=== PATIENT | female | born 1995 | race Caucasian/White ===

== ENCOUNTER 2019-11-02 09:54 | Day surgery (SDC) | payer OTHER ==
[2019-10-29 13:00] VITALS: BMI 30.9
[2019-11-02] MEDS ORDERED: CeleCOXIB 100 MG CAP ONE (10:38)
[2019-11-02] MEDS ORDERED: Gabapentin 300 MG CAP ONE (10:38)
[2019-11-02] MEDS ORDERED: Midazolam HCl 2 mg/2 ml Vial ONE (10:53)
[2019-11-02] MEDS ORDERED: Fentanyl 100 MCG/2 ML VIAL ONE ×2 (10:53→13:13)
[2019-11-02 11:22] LABS: #Basophils 0.1 thou/uL (0.0-0.2); #Lymphocytes 2.1 thou/uL (1.20-3.40); #Monocytes 0.5 thou/uL (0.11-0.59); #Neutrophils 2.6 thou/uL (1.40-6.50); %Basophils 2.2 % (0.0-1.0); %Eosinophils 0.4 % (0.0-10.0); %Lymphocytes 39.4 % (21.0-51.0); %Monocytes 8.7 % (0.0-10.0); %Neutrophils 49.2 % (42.0-75.0); Hemoglobin 13.9 g/dL (12.0-16.0); Mean Corpuscular HGB CONC 34.3 g/dL (32.0-36.0); Mean Corpuscular Hemoglobin 29.9 pg (27.0-31.0); Mean Corpuscular Volume 87.1 fL (78.0-98.0); Mean Platelet Volume 8.3 fL (7.4-10.4); Platelet Count 223 thou/uL (130-400); RBC Distribution Width 11.5 % (11.5-14.5); Red Blood Cell (RBC) Count 4.64 mill/uL (4.20-5.40); White Blood Cell (WBC) Count 5.3 thou/uL (4.8-10.8)
[2019-11-02 11:31] LABS: BHCG - Serum Negative (NEGATIVE); Pregs Control Background? CLEAR/WHITE (CLR/WHITE); Pregs Control Bar Appear? YES (CONTROL BAR)
[2019-11-02] MEDS ORDERED: Ondansetron PF 4 MG/2 ML Vial ONE (11:37)
[2019-11-02] MEDS ORDERED: PROPOFOL 200 MG/20 ML VIAL ONE (11:37)
[2019-11-02] MEDS ORDERED: Lidocaine 1% PF 5 ML VIAL ONE (11:37)
[2019-11-02] MEDS ORDERED: Dexamethasone 20 MG/5 ML VIAL ONE (11:37)
[2019-11-02] MEDS ORDERED: HYDROcodone/Acetaminophen 5/325 mg Tablet ONE (13:26)
--- NOTE | 2019-11-02 13:32 | OP ---
DATE OF PROCEDURE: 11/02/2019 PREOPERATIVE DIAGNOSIS: Intrauterine device, unable to remove in the office. POSTOPERATIVE DIAGNOSES: 1. Status post hysteroscopy with intrauterine device removal. 2. No intrauterine defects. 3. Normal intrauterine cavity. 4. Tubal ostia noted bilaterally. PROCEDURE PERFORMED: Hysteroscopic intrauterine device removal. [employer] LOCATION MANAGER: None. ESTIMATED BLOOD LOSS: Less than 20 mL. COMPLICATIONS: None. ANESTHESIA: LMA. OPERATIVE FINDINGS: IUD strings noted at the external os. HYSTEROSCOPIC FINDINGS: Mirena IUD noted within the uterine cavity with one arm visible and one arm partially visible with tip within the endometrial versus myometrial tissue, removed under direct visualization, intact. PROCEDURE IN DETAIL: The patient was taken back to the OR with IV fluids running. Once she was in the OR, anesthesia was obtained and the patient was prepped and draped. The bladder was drained. An operative speculum was placed into the vagina. The anterior lip of the cervix was grasped with a single-tooth tenaculum. Ring forceps grasped the tip of the Mirena IUD strings at the cervical os. The hysteroscope was assembled and primed. The Hysteroscope was placed through the cervix after it was dilated to approximately 15-Tajik with serial dilators. Normal saline was used to distend the intrauterine cavity. The Mirena IUD was noted with the above findings with traction at the strings with a ring forceps, and under direct visualization, an attempt was made to remove the Mirena IUD with traction on the Mirena strings. The IUD was not able to be removed using this technique. Next, a forceps was placed within the uterine cervix and into the lower segment of the uterus, where the tip of the Mirena was grasped, and with slow retraction and under visualization, it was removed then without difficulty. After the Mirena was removed, it was inspected and noted to be completely intact. The hysteroscope was then replaced through the cervix and the uterine cavity was distended with no abnormal findings noted. The cervix was noted to be hemostatic at the end of the procedure with all the instruments removed and the counts correct. The patient tolerated the procedure well. She awoken from anesthesia and was transferred to the recovery room in good condition. Job ID: [id number]
== END 2019-11-02 14:44 | disposition home or self-care (01) ==
LOC: SDC 09:54
PROVIDERS: ATTEND Obstetrics & Gynecology
PROC: 0UPD8HZ Removal of Contraceptive Device from Uterus and Cervix, Via Natural or Artificial Opening Endoscopic (ICD-10-PCS; principal; 2019-11-02)
DX: Z30.432 Encounter for removal of intrauterine contraceptive device (principal); N64.4 Mastodynia; Z91.041 Radiographic dye allergy status; Z91.013 Allergy to seafood; Z88.8 Allergy status to other drugs, medicaments and biological substances
CPT/HCPCS: 36415; 84703; 85025; 86850; 86900; 86901; J0690; J1100; J2001; J2250; J2405; J2704; J3010

== ENCOUNTER 2019-11-04 13:29 | Outpatient (CLI) | payer OTHER ==
--- NOTE | 2019-11-04 14:26 | ULT ---
LIMITED RIGHT BREAST ULTRASOUND: Date: 11/04/2019 PROVIDED CLINICAL HISTORY: Right breast pain. FINDINGS: Limited sonographic interrogation of the right breast was performed of the 1 to 4 o'clock positions i n the region of patient pain. The sonographic appearance of the breast tissue in these regions is nor mal. IMPRESSION: No sonographic abnormality is evident in the right breast to explain the patient's breast pain. Negat ace imaging findings should not preclude further evaluation of a clinically suspicious finding. The p atient is referred back to her clinician. POS: OFF
== END 2019-11-04 13:30 | disposition home or self-care (01) ==
LOC: BICULT 13:29
PROVIDERS: ATTEND Obstetrics & Gynecology
DX: N64.4 Mastodynia (principal)